=== PATIENT | male | born 1955 | race Caucasian/White ===

== ENCOUNTER → 2017-09-23 | Outpatient (CLI) | payer MEDICARE, OTHER ==
--- NOTE | 2017-09-23 16:42 | CT ---
EXAMINATION TYPE: CT cervical spine wo con DATE OF EXAM: 09/23/2017 COMPARISON: NONE HISTORY: 62-year-old male Head and neck pain x2 months. TECHNIQUE: Contiguous axial scanning of the cervical spine without IV contrast. Coronal and sagittal reconstructions performed. CT DLP: 487.7 mGycm Automated exposure control for dose reduction was used. FINDINGS: No craniocervical junction anomaly, predental space widening, or prevertebral soft tissue swelling. Post surgical changes of C4-C7 ACDF. There is some posterior osteophytic ridging at C6-C7 minimally narrowing the spinal canal. Alignment is maintained. No krish canal compromise is identified allowing for CT modality and artifact from the patient's meta l hardware and shoulders. Facet/uncovertebral joint arthropathy above the fusion at C3-C4. At C2-C3, no canal or foraminal stenosis. At C3-C4, changes result in [id number] right neuroforaminal stenosis. At C4-C5, bony changes cause mild narrowing of the left neuroforamen. At C5-C6, bony changes contribute to mild bilateral neural foraminal stenosis. At C6-C7, changes contribute to mild narrowing of the left neuroforamen and minimal narrowing of the spinal canal. At C7-T1, no significant foraminal stenosis. Calcified granuloma at the right upper lobe with some right apical pleural parenchymal scarring. IMPRESSION: 1. STATUS POST C4-C7 ACDF. 2. FACET AND UNCOVERTEBRAL JOINT ARTHROPATHY ABOVE THE FUSION AT C3-C4 CONTRIBUTES TO MILD TO MODERAT E RIGHT NEUROFORAMINAL STENOSIS. 3. ADDITIONAL VARIABLE MILD NEUROFORAMINAL NARROWING AT THE FUSED LEVELS OUTLINED ABOVE. 4. NO EVIDENT CANAL COMPROMISE BY CT.
== END | disposition home or self-care (01) ==
LOC: RADCTMAIN 15:52
PROVIDERS: ATTEND Psychiatry & Neurology Neurology
DX: M99.71 Connective tissue and disc stenosis of intervertebral foramina of cervical region (principal); Z88.0 Allergy status to penicillin
CPT/HCPCS: 72125